=== PATIENT | female | born 1975 | race Caucasian/White ===

== ENCOUNTER 2018-03-20 06:34 | Emergency (ER) | payer BC ==
[~2018-03-20] VITALS: Ht 160 cm; Wt 55.5 kg
[2018-03-20 06:43] VITALS: Ht 160 cm; Wt 55.5 kg
[2018-03-20] MEDS ORDERED: ear drops (06:46)
[2018-03-20] MEDS ORDERED: AMOXICILLIN875 MG PO (06:46)
[2018-03-20] MEDS ORDERED: FLOVENT DI50 MCG/DIS INH (06:47)
[2018-03-20] MEDS ORDERED: CORTISPORIN OTI10 M1 LEFT EAR (08:38)
[2018-03-20] MEDS ORDERED: CYCLOBENZAPRINE10 MG PO (08:44)
[2018-03-20] MEDS ORDERED: OMEPRAZOLE40 MG PO (08:45)
[2018-03-20 08:56] VITALS: BP 140/92
== END 2018-03-20 08:57 | disposition home or self-care (01) ==
LOC: D.ER 06:34
DX: H60.92 Unspecified otitis externa, left ear (principal); F41.9 Anxiety disorder, unspecified; K21.9 Gastro-esophageal reflux disease without esophagitis

== ENCOUNTER → 2018-06-23 09:22 | Outpatient (CLI) | payer BC ==
[2018-03-20 06:43] VITALS: BMI 21.6
[~2018-06-23 09:22] MED LIST: AMOXICILLIN875 MG PO; CORTISPORIN OTI10 M1 LEFT EAR; CYCLOBENZAPRINE10 MG PO; FLOVENT DI50 MCG/DIS INH; OMEPRAZOLE40 MG PO; ear drops
== END | disposition home or self-care (01) ==
LOC: D.RAD 09:22
DX: K21.9 Gastro-esophageal reflux disease without esophagitis (principal)